=== PATIENT | female | born 1955 | race Caucasian/White ===

== ENCOUNTER → 2016-06-29 | Day surgery (SDC) | payer OTHER ==
[~2016-06-29] VITALS: Ht 160 cm; Wt 55.0 kg
[~2016-06-29] MED LIST: AMBI10TA PO; BUPIVACAINE HCL PF 0.5% 30 ML VIAL ONE; BUPR-175 PO; BUPR100CR PO; CEPH-459 PO; ESTR.625 PO; LACTATED RINGER'S 1000 ML INJ 1,000 ML ONE; LIDOCAINE HCL 2% 50 ML VIAL ONE; LISI-360 PO; LISI10TA3 PO; MIDAZOLAM HCL 2 MG/2 ML VIAL ONE; NEOMYCIN/POLYMYXIN 1 ML G.U. IRRIGANT TOPICAL ONE; NORC5TAB PO; PREM0.622 PO; PROPOFOL 200 MG/20 ML AMP IV ONE; ULTR50TA5 PO; ceFAZolin INJ 1,000 MG VIAL ONE
[2016-06-29 08:37] VITALS: BP 123/75; PULSE 55; RESP 20; TEMP 97.5; O2SAT 100
[2016-06-29 09:03] LABS: HEMATOCRIT 35.5 % (35.0-46.0); MEAN CELL VOLUME 91.5 FL (80.0-100.0); MEAN CORPUSCULAR HEMOGLOBIN 31.1 PG (27.0-34.0); PLATELET COUNT 236 TH/MM3 (150-450); RED BLOOD COUNT 3.88 MIL/MM3 (4.00-5.30); REVIEW FLAG FINAL; WHITE BLOOD COUNT 4.4 TH/MM3 (4.0-11.0)
[2016-06-29 11:50] VITALS: BP 125/66; PULSE 65; RESP 16; TEMP 97.9; O2SAT 98
--- NOTE | 2016-06-30 13:40 | EKG ---
Date Performed: 06/29/2016 Time Performed: 08:59:56 PTAGE: 61 years EKG: Sinus bradycardia. Normal ECG except for rate PREVIOUS TRACING : 02/25/2015 07.09 Compared to prior tracing no significant change DOCTOR: Hipolito Gooden Interpretating Date/Time 06/30/2016 13:36:56
--- NOTE | 2016-07-01 17:51 | MP ---
cc: FRANTZ BEDOLLA MD DATE OF SURGERY 06/29/16 PREOPERATIVE DIAGNOSIS Right ring finger chronic paronychia PROCEDURE 1. Right ring finger chronic paronychia incision and drainage. 2. Removal of proximal half of right ring finger nail plate. SURGEON Simone Bedolla III, PROCEDURE IN DETAIL The patient was brought to the operating room, placed supine on the operating table after the correct site and side of surgery were verified by members of each team in the room multiple times including the patient and myself, after adequate preop markings and preoperative written consent were verified by everyone and after adequate preop time-out was performed to everyone's satisfaction, after adequate IV sedation had been achieved, right upper extremity was prepped and draped in traditional sterile surgical fashion and ring finger was then anesthetized using a metacarpal level block using 50/50 mixture of 2% plain Lidocaine and 0.5% plain Marcaine. Finger tourniquets were applied using the two smallest fingers of a size 6 sterile glove. The eponychial fold was then probed and there was found to be lot of discoloration beneath the proximal aspect of the fingernail. Longitudinal incisions at the edge of the eponychial fold was made 8 mm in length for both and the tissue was elevated. The proximal one half of the fingernail plate was then excised and the whole entire area was cultured. There was no purulence, but there was a lot of yeast like debris. It was very deep. The whole entire was then scrubbed with Hibiclens and a very thin Iodoform packing was applied across the base of it and brought outside and the eponychial flap was then tacked back in place with 4-0 chromic sutures. The tourniquet was then released and the finger became immediately soft, pink and warm and had brisk capillary refill of less than 2 seconds. The hand and arm were thoroughly cleansed and dried and a bulky protective dressing was made over the ring finger. The patient was awakened from anesthesia and transported to the Post Anesthesia Care Unit awake and in stable condition and the end of the case. Sponge, needle, instrument counts were correct at the end of the case as reported by the nurses in the room. MD DUANE Esparza III/ /11:11 AM /5:34 PM
== END | disposition home or self-care (01) ==
LOC: PHSDC 07:02
PROVIDERS: ATTEND Orthopaedic Surgery Hand Surgery
DX: L03.011 Cellulitis of right finger (principal); B96.5 Pseudomonas (aeruginosa) (mallei) (pseudomallei) as the cause of diseases classified elsewhere; I10 Essential (primary) hypertension; J45.909 Unspecified asthma, uncomplicated
CPT/HCPCS: 00400; 26011; 36415; 85027; 86403; 87015; 87070; 87077; 87102; 87116; 87186; 87205; 87206; 93005; J0690; J2250; J3010; J7120